=== PATIENT | male | born 1945 | race Two or more races ===

== ENCOUNTER 2022-07-18 09:06 | Outpatient (CLI) | payer MEDICARE ==
[2022-07-18 15:28] LABS: BASOPHILS % (AUTO) 0.6 % (0.0-2.0); EOSINOPHILS % (AUTO) 2.7 % (0.0-6.0); HEMATOCRIT 38 % (39-51); HEMOGLOBIN 12.5 g/dL (13.5-17.5); LYMPHOCYTES # (AUTO) 2.3 K/uL (0.8-4.8); LYMPHOCYTES % (AUTO) 26.9 % (20.0-44.0); MEAN CORPUSCULAR HGB CONC 33 g/dl (31.0-36.0); MEAN CORPUSCULAR VOLUME 88 fL (80-96); MONOCYTES # (AUTO) 0.7 K/uL (0.1-1.30); MONOCYTES % (AUTO) 8.8 % (2.0-12.0); NEUTROPHILS # (AUTO) 5.1 K/uL (1.8-8.9); PLATELET COUNT (AUTO) 167 K/uL (150-450); RED BLOOD CELL COUNT(AUTO) 4.35 MIL/uL (4.5-6.0); WHITE BLOOD COUNT (AUTO) 8.4 K/uL (4.3-11.0)
[2022-07-18 16:07] LABS: CALCIUM, SERUM 8.7 mg/dL (8.5-10.1); CARBON DIOXIDE 28 mmol/L (21-32); CHLORIDE 107 mmol/L (98-107); CREATININE 1.4 mg/dL (0.6-1.3); GLUCOSE 125 mg/dL (74-106); POTASSIUM 4.2 mmol/L (3.5-5.1); SODIUM SERUM 141 mmol/L (136-145); UREA NITROGEN, BLOOD 25 mg/dL (7-18)
== END 2022-07-18 23:59 | disposition home or self-care (01) ==
LOC: LAB 09:06
PROVIDERS: ATTEND Dentist Oral and Maxillofacial Surgery
DX: Z01.812 Encounter for preprocedural laboratory examination (principal); Z20.822 Contact with and (suspected) exposure to COVID-19
CPT/HCPCS: 85025; 80048; 36415; 85730; U0003; C9803

== ENCOUNTER 2023-02-20 08:28 | Inpatient (IN) | payer MEDICARE ==
[~2023-02-20] VITALS: Ht 182.9 cm; Wt 90.5 kg
[2023-02-20] VITALS (7 sets, daily range): BP systolic 130–155; BP diastolic 50–66; TEMP 97.3–98.4; O2SAT 93–95
[2023-02-20] MEDS ORDERED: PANT40TA2 PO (09:24)
[2023-02-20] MEDS ORDERED: SOTA120T PO (09:24)
[2023-02-20] MEDS ORDERED: OLME1TAB19 PO (09:24)
[2023-02-20] MEDS ORDERED: ASPI-1169 PO (09:24)
[2023-02-20] MEDS ORDERED: ATOR40TA PO (09:24)
[2023-02-20] MEDS ORDERED: dexaMETHasone SOD PHOSPHATE 10 MG/ML VIAL ONE (11:06)
[2023-02-20] MEDS ORDERED: VANCOMYCIN 1 GM VIAL ONE (11:06)
[2023-02-20] MEDS ORDERED: LIDOCAINE 2%-EPI 1:100,000 30 ML VIAL ONE (11:06)
[2023-02-20] MEDS ORDERED: OXYMETAZOLINE HCL NASAL SPRAY 30 ML BOTTLE NS ONE (11:06)
[2023-02-20] MEDS ORDERED: GLYCOPYRROLATE 0.2 MG/ML VIAL ONE (11:08)
[2023-02-20] MEDS ORDERED: ROCURONIUM BROMIDE 50 MG/5 ML ONE (11:09)
[2023-02-20] MEDS ORDERED: FENTANYL PF 250MCG/5ML AMPUL ONE (11:09)
[2023-02-20] MEDS ORDERED: CELLULOSE,OXIDIZED 1 EA PACK MC ONE (12:53)
[2023-02-20] MEDS ORDERED: ONDANSETRON HCL/PF 4 MG/2 ML VIAL IV PRN (14:00)
[2023-02-20] MEDS ORDERED: ACETAMINOPHEN 325 MG TABLET PO PRN (14:00)
[2023-02-20] MEDS ORDERED: IV NS 0.9% 1,000 ML IV PRN (14:00)
[2023-02-20] MEDS ORDERED: HYDROMORPHONE 1 MG/1 ML DISP.SYRIN IV PRN (14:00)
[2023-02-20] MEDS: SOTALOL HCL 80 MG TABLET PO SCH (21:00)
[2023-02-20] MEDS: VANCOMYCIN 1 GM in IV D5W 250ml IV SCH (23:03)
[2023-02-21 08:00] VITALS: BP_SYST 141; BP_DIAS 40; BP_DIAS 50; TEMP 97.6; O2SAT 96
[2023-02-21 09:00] VITALS: BP 141/50
[2023-02-21] MEDS ORDERED: ASPIRIN 81 MG TAB.CHEW PO SCH (09:00)
[2023-02-21] MEDS: SOTALOL HCL 80 MG TABLET PO SCH (09:00)
[2023-02-21] MEDS ORDERED: ATORVASTATIN 40 MG TABLET PO SCH (09:00)
[2023-02-21] MEDS ORDERED: LOSARTAN POTASSIUM 50 MG TABLET PO SCH (09:00)
[2023-02-21] MEDS ORDERED: PANTOPRAZOLE 40 MG TABLET.DR PO SCH (09:00)
[2023-02-21] MEDS: VANCOMYCIN 1 GM in IV D5W 250ml IV SCH (12:11)
== END 2023-02-21 15:04 | disposition home or self-care (01) | DRG 497 ==
LOC: DS 08:28 → MED 08:31
PROC: 09BR0ZZ Excision of Left Maxillary Sinus, Open Approach (ICD-10-PCS; principal; 2023-02-20)
PROC: 0NPW04Z Removal of Internal Fixation Device from Facial Bone, Open Approach (ICD-10-PCS; 2023-02-20)
PROC: 09UR07Z Supplement Left Maxillary Sinus with Autologous Tissue Substitute, Open Approach (ICD-10-PCS; 2023-02-20)
PROC: 09BQ0ZX Excision of Right Maxillary Sinus, Open Approach, Diagnostic (ICD-10-PCS; 2023-02-20)
PROC: 0WB30ZX Excision of Oral Cavity and Throat, Open Approach, Diagnostic (ICD-10-PCS; 2023-02-20)
PROC: 0NUR07Z Supplement Maxilla with Autologous Tissue Substitute, Open Approach (ICD-10-PCS; 2023-02-20)
DX: T84.69XA Infection and inflammatory reaction due to internal fixation device of other site, initial encounter (principal); E66.9 Obesity, unspecified; E78.5 Hyperlipidemia, unspecified; F17.210 Nicotine dependence, cigarettes, uncomplicated; F41.9 Anxiety disorder, unspecified; I10 Essential (primary) hypertension; J44.9 Chronic obstructive pulmonary disease, unspecified; N40.0 Benign prostatic hyperplasia without lower urinary tract symptoms; Z88.0 Allergy status to penicillin; J32.0 Chronic maxillary sinusitis; M27.40 Unspecified cyst of jaw; Y83.2 Surgical operation with anastomosis, bypass or graft as the cause of abnormal reaction of the patient, or of later complication, without mention of misadventure at the time of the procedure; Y92.009 Unspecified place in unspecified non-institutional (private) residence as the place of occurrence of the external cause; Z68.27 Body mass index [BMI] 27.0-27.9, adult
CPT/HCPCS: 71045-TC; 87081-TC; A4223; A6403; G0378; J1100; J2405; J2704; J2765; J3010; J3370; J3490; J7030; J7050; J7060

== ENCOUNTER 2023-08-20 08:20 | Inpatient (IN) | payer MEDICARE ==
[~2023-08-20] VITALS: Ht 180.3 cm; Wt 92.5 kg
[2023-08-20] VITALS (8 sets, daily range): BP systolic 130–147; BP diastolic 52–60; TEMP 97–98.1; O2SAT 96–99
[~2023-08-20 08:20] MED LIST: ASPI-1169 PO; ATOR40TA PO; OLME1TAB19 PO; PANT40TA2 PO; SOTA120T PO
[2023-08-20] MEDS ORDERED: VANCOMYCIN 1 GM VIAL ONE (09:23)
[2023-08-20] MEDS ORDERED: LIDOCAINE 2%-EPI 1:100,000 30 ML VIAL ONE (09:38)
[2023-08-20] MEDS ORDERED: dexaMETHasone SOD PHOSPHATE 2 ML ONE (09:39)
[2023-08-20] MEDS ORDERED: OXYMETAZOLINE HCL NASAL SPRAY 30 ML BOTTLE NS ONE (09:39)
[2023-08-20] MEDS ORDERED: FENTANYL PF 100MCG/2ML AMPUL ONE (09:42)
[2023-08-20] MEDS ORDERED: LIDOCAINE 1% INJ 50 ML MDV IJ ONE (12:16)
[2023-08-20] MEDS: IV NS 0.9% 1,000 ML IV PRN (13:23)
[2023-08-20] MEDS ORDERED: HYDROMORPHONE 1 MG/1 ML DISP.SYRIN IV PRN (13:30)
[2023-08-20] MEDS ORDERED: ACETAMINOPHEN 325 MG TABLET PO PRN ×2 (13:30→14:30)
[2023-08-20] MEDS ORDERED: ONDANSETRON HCL/PF 4 MG/2 ML VIAL IV PRN (13:30)
[2023-08-20] MEDS ORDERED: IV NS 0.9% 1,000 ML IV PRN (14:30)
[2023-08-20] MEDS ORDERED: ONDANSETRON HCL/PF 4 MG/2 ML VIAL IVP PRN (14:30)
[2023-08-20] MEDS ORDERED: CHLO25TA2 PO (15:37)
[2023-08-20] MEDS ORDERED: VALS1TAB8 PO (15:37)
[2023-08-20] MEDS: ATORVASTATIN 40 MG TABLET PO SCH (21:07)
[2023-08-20] MEDS: VANCOMYCIN 1 GM in IV D5W 250ml IV SCH (21:10)
[2023-08-21] VITALS: BP 134/49; TEMP 97.6; O2SAT 98
[2023-08-21 00:31] VITALS: BP 134/49; TEMP 97.6; O2SAT 98
[2023-08-21 04:00] VITALS: BP 140/46; TEMP 98.1; O2SAT 98
[2023-08-21 07:17] LABS: BASOPHILS % (AUTO) 0.3 % (0.0-2.0); HEMATOCRIT 34 % (39-51); HEMOGLOBIN 11.2 g/dL (13.5-17.5); LYMPHOCYTES # (AUTO) 1.3 K/uL (0.8-4.8); LYMPHOCYTES % (AUTO) 8.9 % (20.0-44.0); MEAN CORPUSCULAR HEMOGLOBIN 30 PG (26.0-33.0); MEAN CORPUSCULAR HGB CONC 33 g/dl (31.0-36.0); MEAN CORPUSCULAR VOLUME 93 fL (80-96); MONOCYTES % (AUTO) 6.7 % (2.0-12.0); NEUTROPHILS # (AUTO) 12.1 K/uL (1.8-8.9); NEUTROPHILS % (AUTO) 84.1 % (43.0-81.0); PLATELET COUNT (AUTO) 154 K/uL (150-450); RED CELL DISTRIBUTION WIDTH 14.8 % (11.5-15.0); WHITE BLOOD COUNT (AUTO) 14.4 K/uL (4.3-11.0)
[2023-08-21 07:46] LABS: CALCIUM, SERUM 8.2 mg/dL (8.5-10.1); CARBON DIOXIDE 20 mmol/L (21-32); CHLORIDE 107 mmol/L (98-107); CREATININE 1.4 mg/dL (0.6-1.3); GLUCOSE 120 mg/dL (74-106); MAGNESIUM 1.8 mg/dL (1.8-2.4); PHOSPHORUS 3.9 mg/dL (2.5-4.9); POTASSIUM 4.2 mmol/L (3.5-5.1); SODIUM SERUM 138 mmol/L (136-145); UREA NITROGEN, BLOOD 41 mg/dL (7-18)
[2023-08-21 08:00] VITALS: BP 135/51; TEMP 99.3; O2SAT 96
[2023-08-21 08:39] LABS: CHOLESTEROL 71 mg/dL (<200); HDL CHOLESTEROL 37 mg/dL (40-60); LDL 26 mg/dL (0-99); TRIGLYCERIDES 68 mg/dL (30-150)
[2023-08-21] MEDS: ASPIRIN 81 MG TAB.CHEW PO SCH (08:53)
[2023-08-21] MEDS: PANTOPRAZOLE 40 MG TABLET.DR PO SCH (08:53)
[2023-08-21] MEDS: VALSARTAN 80 MG TABLET PO SCH (08:54)
[2023-08-21] MEDS: AMLODIPINE BESYLATE 5 MG TABLET PO SCH (08:55)
[2023-08-21] MEDS: SOTALOL AF 80 MG TABLET PO SCH (08:55)
[2023-08-21] MEDS: HYDROCHLOROTHIAZIDE 25 MG TABLET PO SCH (08:56)
[2023-08-21] MEDS ORDERED: HYDROCHLOROTHIAZIDE 25 MG TABLET PO SCH (09:00)
[2023-08-21] MEDS ORDERED: Medication Not On Formulary EA (Valsartan/Hydrochlorothiazide (Diovan Hct 320-25 Mg Tabl PO SCH (09:00)
[2023-08-21 12:00] VITALS: BP 131/55; TEMP 97.9; O2SAT 98
== END 2023-08-21 15:00 | disposition home or self-care (01) | DRG 908 ==
LOC: DS 08:20 → MED 12:32 → TELE 15:39
PROVIDERS: ADMIT Nurse Practitioner Acute Care; ATTEND Nurse Practitioner Acute Care
PROC: 0NBR0ZZ Excision of Maxilla, Open Approach (ICD-10-PCS; principal; 2023-08-20)
PROC: 0NUR07Z Supplement Maxilla with Autologous Tissue Substitute, Open Approach (ICD-10-PCS; 2023-08-20)
PROC: 0NUR0JZ Supplement Maxilla with Synthetic Substitute, Open Approach (ICD-10-PCS; 2023-08-20)
PROC: 0NSR0ZZ Reposition Maxilla, Open Approach (ICD-10-PCS; 2023-08-20)
DX: T86.831 Bone graft failure (principal); S02.40DK Maxillary fracture, left side, subsequent encounter for fracture with nonunion; I10 Essential (primary) hypertension; J44.9 Chronic obstructive pulmonary disease, unspecified; E66.9 Obesity, unspecified; E78.5 Hyperlipidemia, unspecified; F41.9 Anxiety disorder, unspecified; N40.0 Benign prostatic hyperplasia without lower urinary tract symptoms; Z68.28 Body mass index [BMI] 28.0-28.9, adult; G47.33 Obstructive sleep apnea (adult) (pediatric); I49.3 Ventricular premature depolarization; Z88.0 Allergy status to penicillin; Z87.891 Personal history of nicotine dependence; I95.9 Hypotension, unspecified; Y92.009 Unspecified place in unspecified non-institutional (private) residence as the place of occurrence of the external cause; Y83.2 Surgical operation with anastomosis, bypass or graft as the cause of abnormal reaction of the patient, or of later complication, without mention of misadventure at the time of the procedure; J01.90 Acute sinusitis, unspecified; J34.1 Cyst and mucocele of nose and nasal sinus
CPT/HCPCS: 36415; 80048-TC; 80061-TC; 83735-TC; 84100-TC; 85025-TC; 87081-TC; 88305-TC; 88311-TC; 88312-TC; A4223; G0378; J0360; J0461; J0690; J1100; J2704; J3010; J3370; J3490; J7030; J7060

== ENCOUNTER 2024-02-11 07:04 | Inpatient (IN) | payer MEDICARE ==
[~2024-02-11] VITALS: Ht 182.9 cm; Wt 92.5 kg
[~2024-02-11 07:04] MED LIST changes: +CHLO25TA2 PO; -OLME1TAB19 PO; +VALS1TAB8 PO
[2024-02-11] MEDS ORDERED: LIDOCAINE 2%-EPI 1:100,000 30 ML VIAL ONE (08:12)
[2024-02-11] MEDS ORDERED: dexaMETHasone SOD PHOSPHATE 2 ML ONE (08:12)
[2024-02-11] MEDS ORDERED: VANCOMYCIN 1 GM VIAL ONE (08:12)
[2024-02-11] MEDS ORDERED: EPINEPHRINE (1:10,000) SYRINGE 1 MG/10 ML DISP.SYRIN ONE (08:57)
[2024-02-11] MEDS ORDERED: SILVER NITRATE APPLICATOR 1 EA BOX ONE (10:10)
[2024-02-11] MEDS ORDERED: CELLULOSE,OXIDIZED 1 PKT EACH MC ONE (10:12)
[2024-02-11] MEDS ORDERED: CELLULOSE,OXIDIZED 1 EA PACK MC ONE (10:13)
[2024-02-11] MEDS ORDERED: IV NS 0.9% 1,000 ML IV PRN (11:30)
[2024-02-11] MEDS ORDERED: ONDANSETRON HCL/PF 4 MG/2 ML VIAL IV PRN (11:30)
[2024-02-11] MEDS ORDERED: ACETAMINOPHEN 325 MG TABLET PO PRN ×2 (11:30→14:30)
[2024-02-11] MEDS ORDERED: ONDANSETRON HCL/PF 4 MG/2 ML VIAL IVP PRN (14:30)
[2024-02-11] MEDS ORDERED: MAG HYDROX/AL HYDROX/SIMETH 30 ML UDC PO PRN (14:30)
[2024-02-11] MEDS ORDERED: ANESTHESIA TRAY IN PYXIS 1 EA TRAY MC ONE (15:15)
[2024-02-11 16:00] VITALS: BP 153/55; TEMP 97.7; O2SAT 98
[2024-02-11] MEDS: IV NS 0.9% 1,000 ML IV PRN (17:54)
[2024-02-11] MEDS: VANCOMYCIN 1 GM in IV D5W 250ml IV SCH (19:58)
[2024-02-11 20:00] VITALS: BP 157/60; TEMP 97.7; O2SAT 95
[2024-02-11] MEDS: HYDROMORPHONE 1 MG/1 ML DISP.SYRIN IV PRN (23:14)
[2024-02-12 06:40] LABS: HEMATOCRIT 33 % (39-51); LYMPHOCYTES # (AUTO) 1.3 K/uL (0.8-4.8); LYMPHOCYTES % (AUTO) 8.5 % (20.0-44.0); MEAN CORPUSCULAR HEMOGLOBIN 30 PG (26.0-33.0); MEAN CORPUSCULAR HGB CONC 33 g/dl (31.0-36.0); MEAN CORPUSCULAR VOLUME 89 fL (80-96); MONOCYTES # (AUTO) 0.9 K/uL (0.1-1.30); MONOCYTES % (AUTO) 6.3 % (2.0-12.0); NEUTROPHILS # (AUTO) 12.9 K/uL (1.8-8.9); NEUTROPHILS % (AUTO) 85.2 % (43.0-81.0); PLATELET COUNT (AUTO) 143 K/uL (150-450); RED BLOOD CELL COUNT(AUTO) 3.68 MIL/uL (4.5-6.0); RED CELL DISTRIBUTION WIDTH 14.5 % (11.5-15.0); WHITE BLOOD COUNT (AUTO) 15.2 K/uL (4.3-11.0)
[2024-02-12 08:00] VITALS: BP 133/47; TEMP 97.7; O2SAT 98
[2024-02-12 08:10] LABS: CALCIUM, SERUM 8.5 mg/dL (8.5-10.1); CARBON DIOXIDE 23 mmol/L (21-32); CHLORIDE 111 mmol/L (98-107); CREATININE 1.5 mg/dL (0.6-1.3); GLUCOSE 120 mg/dL (74-106); PHOSPHORUS 3.7 mg/dL (2.5-4.9); POTASSIUM 4.6 mmol/L (3.5-5.1); SODIUM SERUM 144 mmol/L (136-145); UREA NITROGEN, BLOOD 35 mg/dL (7-18)
[2024-02-12] MEDS ORDERED: HYDR-4076 PO (09:40)
== END 2024-02-12 11:41 | disposition home or self-care (01) | DRG 517 ==
LOC: DS 07:04 → MED 11:08
PROVIDERS: ADMIT Nurse Practitioner Acute Care; ATTEND Nurse Practitioner Acute Care
PROC: 0NSR04Z Reposition Maxilla with Internal Fixation Device, Open Approach (ICD-10-PCS; principal; 2024-02-11)
PROC: 0NUR0KZ Supplement Maxilla with Nonautologous Tissue Substitute, Open Approach (ICD-10-PCS; 2024-02-11)
PROC: 09BR0ZZ Excision of Left Maxillary Sinus, Open Approach (ICD-10-PCS; 2024-02-11)
PROC: 0NBR0ZX Excision of Maxilla, Open Approach, Diagnostic (ICD-10-PCS; 2024-02-11)
DX: S02.41 LeFort fracture (principal); M27.2 Inflammatory conditions of jaws; J32.0 Chronic maxillary sinusitis; K21.9 Gastro-esophageal reflux disease without esophagitis; J44.9 Chronic obstructive pulmonary disease, unspecified; D64.9 Anemia, unspecified; E78.5 Hyperlipidemia, unspecified; G47.33 Obstructive sleep apnea (adult) (pediatric); M89.8X9 Other specified disorders of bone, unspecified site; N18.30 Chronic kidney disease, stage 3 unspecified; Z88.0 Allergy status to penicillin; Z92.3 Personal history of irradiation; Z85.46 Personal history of malignant neoplasm of prostate; I12.9 Hypertensive chronic kidney disease with stage 1 through stage 4 chronic kidney disease, or unspecified chronic kidney disease; X58.XXXD Exposure to other specified factors, subsequent encounter; D16.4 Benign neoplasm of bones of skull and face; Z87.891 Personal history of nicotine dependence
CPT/HCPCS: 36415; 80048-TC; 83735-TC; 84100-TC; 85025-TC; 88300-TC; 88305-TC; 88311-TC; 88312-TC; A4338; C1713; G0378; J0171; J0461; J0690; J1100; J1171; J2704; J3370; J3490; J7030; J7060

== ENCOUNTER 2024-08-12 07:50 | Inpatient (IN) | payer MEDICARE ==
[~2024-08-12] VITALS: Ht 180.3 cm; Wt 95.3 kg
[~2024-08-12 07:50] MED LIST changes: +HYDR-4076 PO; +IOHEXOL-300 100 ML VIAL IV ONE; +IV NS 0.9% 250 ML IV ONE; -VALS1TAB8 PO
[2024-08-12] MEDS ORDERED: dexaMETHasone SOD PHOSPHATE 1 ML ONE (09:41)
[2024-08-12] MEDS ORDERED: VANCOMYCIN 1 GM VIAL ONE (09:41)
[2024-08-12] MEDS ORDERED: LIDOCAINE 2%-EPI 1:100,000 30 ML VIAL ONE (09:41)
[2024-08-12 12:20] VITALS: BP 136/51; TEMP 97.8; O2SAT 95
[2024-08-12] MEDS ORDERED: ONDANSETRON HCL/PF 4 MG/2 ML VIAL IV PRN (12:30)
[2024-08-12] MEDS ORDERED: HYDROMORPHONE INJ 2 MG/ML DISP.SYRIN IV PRN (12:30)
[2024-08-12 12:35] VITALS: BP 128/56; TEMP 97.6; O2SAT 96
[2024-08-12 12:50] VITALS: BP 136/58; TEMP 97.6; O2SAT 96
[2024-08-12] MEDS ORDERED: VALS1TAB8 PO (13:13)
[2024-08-12] MEDS ORDERED: EMPA10TA PO (13:13)
[2024-08-12] MEDS: IV NS 0.9% 1,000 ML IV PRN (14:52)
[2024-08-12] MEDS: ACETAMINOPHEN 325 MG TABLET PO PRN (15:16)
[2024-08-12 16:34] VITALS: BP 145/54; TEMP 97.3; O2SAT 96
[2024-08-12 20:00] VITALS: BP 147/48; TEMP 97.2; O2SAT 98; O2SAT 99
[2024-08-12] MEDS: VANCOMYCIN 1 GM in IV D5W 250ml IV SCH (21:53)
[2024-08-13 08:00] VITALS: BP 138/48; TEMP 97.6; O2SAT 97
== END 2024-08-13 12:30 | disposition home or self-care (01) | DRG 497 ==
LOC: DS 07:50 → MED 12:13
PROC: 0NUR07Z Supplement Maxilla with Autologous Tissue Substitute, Open Approach (ICD-10-PCS; 2024-08-12)
PROC: 09BR0ZZ Excision of Left Maxillary Sinus, Open Approach (ICD-10-PCS; 2024-08-12)
PROC: 0N5R0ZZ Destruction of Maxilla, Open Approach (ICD-10-PCS; 2024-08-12)
PROC: 0NPW04Z Removal of Internal Fixation Device from Facial Bone, Open Approach (ICD-10-PCS; 2024-08-12)
PROC: 0NSR04Z Reposition Maxilla with Internal Fixation Device, Open Approach (ICD-10-PCS; principal; 2024-08-12 10:15)
DX: S02.41 LeFort fracture (principal); I10 Essential (primary) hypertension; I25.10 Atherosclerotic heart disease of native coronary artery without angina pectoris; E78.5 Hyperlipidemia, unspecified; Z85.46 Personal history of malignant neoplasm of prostate; Z88.0 Allergy status to penicillin; N40.0 Benign prostatic hyperplasia without lower urinary tract symptoms; G47.33 Obstructive sleep apnea (adult) (pediatric); J44.9 Chronic obstructive pulmonary disease, unspecified; Z92.3 Personal history of irradiation; J01.00 Acute maxillary sinusitis, unspecified; J32.0 Chronic maxillary sinusitis; X58.XXXD Exposure to other specified factors, subsequent encounter
CPT/HCPCS: 87081-TC; 88305-TC; 88311-TC; A4223; A4338; C1713; G0378; J0360; J0461; J0690; J1100; J1171; J2704; J3370; J3490; J7030; J7050; J7060; Q9967